=== PATIENT | female | born 1975 | race Two or more races ===

== ENCOUNTER 2017-08-31 04:06 | Emergency (ER) | payer OTHER ==
[2017-08-31] MEDS ORDERED: Ketorolac 60 MG/2 ML SDV IM ONE (04:27)
--- NOTE | 2017-08-31 04:58 | EDM.PDOC ---
ED HPI GENERAL MEDICAL PROBLEM - General Chief Complaint: Upper Extremity Injury/Pain Stated Complaint: LT ARM PAIN Time Seen by Provider: 08/31/17 04:35 Source of Information: Reports: Patient History Limitations: Reports: Other (marginal [place] skills) - History of Present Illness INITIAL COMMENTS - FREE TEXT/NARRATIVE: Was hit by a beet on her lateral L elbow about 24 hrs ago. Was wearing many layers of clothing. Has pain since with wrist extension which is required by her job. Here now due to inability to perform the duties of her job. 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: - Past Surgical History Female Surgical History: Reports: Section Social & Family History - Family History Family Medical History: Noncontributory - Tobacco Use Smoking Status *Q: Light Tobacco Smoker Years of Tobacco use: 20 Packs/Tins Daily: 0.2 - Alcohol Use Days Per Week of Alcohol Use: 2 Number of Drinks Per Day: 2 Total Drinks Per Week: 4 - Recreational Drug Use Recreational Drug Use: No Review of Systems - Review of Systems Review Of Systems: See Below Constitutional: Reports: No Symptoms Musculoskeletal: Reports: Joint Pain (L elbow) Skin: Reports: No Symptoms Neurological: Reports: No Symptoms ED EXAM, GENERAL - Physical Exam Exam: See Below Exam Limited By: No Limitations General Appearance: Alert, WD/WN, No Apparent Distress, Obese Extremities: Normal Inspection, Arm Pain (L elbow has slight swelling. No bony pain. Pain over the muscular aspect of the lateral elbow. ROM to flexion/ext and supination/pronation is slightly reduced.), Limited Range of Motion. No: Normal Range of Motion, Non-Tender, No Pedal Edema Neurological: Alert, Oriented, CN II-XII Intact, Normal Cognition, No Motor/ Sensory Deficits Psychiatric: Normal Affect, Normal Mood Skin Exam: Warm, Dry, Intact, Normal Color, No Rash Lymphatic: No Adenopathy Course - Vital Signs Last Recorded V/S: Last Vital Signs Temp 36.4 C 08/31/17 04:06 Pulse 63 08/31/17 04:06 Resp 18 08/31/17 04:06 BP 131/85 08/31/17 04:06 Pulse Ox 99 08/31/17 04:06 - Orders/Labs/Meds Meds: Medications Discontinued Medications Generic Name Dose Route Start Last Admin Trade Name Freq PRN Reason Stop Dose Admin Ketorolac Tromethamine 60 mg 08/31/17 04:27 08/31/17 04:40 Toradol IM 08/31/17 04:28 60 mg ONETIME ONE Administration Departure - Departure Time of Disposition: 04:58 Disposition: Home, Self-Care 01 Condition: Good Clinical Impression: Contusion of elbow, left Qualifiers: Encounter type: initial encounter Qualified Code(s): S50.02XA - Contusion of left elbow, initial encounter - Discharge Information Referrals: PCP,None [Primary Care Provider] - Forms: ED Department Discharge Additional Instructions: Wear sling for support. Take ibuprofen 400 mg every 6 hrs starting at 10 am today. Recheck in a clinic of your choice by early next week, call for an appt.
== END 2017-08-31 05:15 | disposition home or self-care (01) ==
LOC: FB.ED 04:06
DX: S50.02XA Contusion of left elbow, initial encounter (principal); X50.9XXA Other and unspecified overexertion or strenuous movements or postures, initial encounter; Y99.0 Civilian activity done for income or pay; F17.210 Nicotine dependence, cigarettes, uncomplicated
CPT/HCPCS: 96372; 99000; 99282; J1885

== ENCOUNTER 2019-08-02 15:19 | Emergency (ER) | payer MEDICAID, OTHER ==
[2019-08-02] MEDS ORDERED: Lidocaine 1% with EPINEPHrine 1:100,000 10 ML MDV INFILT ONE (15:20)
[2019-08-02] MEDS ORDERED: Diphtheria/Tetanus Toxoids,Adult (Td) 0.5 ML SDV IM ONE (16:47)
--- NOTE | 2019-08-02 16:55 | EDM.PDOC ---
ED HPI GENERAL MEDICAL PROBLEM - General Stated Complaint: LEG LACERATION Time Seen by Provider: 08/02/19 17:50 Source of Information: Reports: Patient History Limitations: Reports: No Limitations - History of Present Illness INITIAL COMMENTS - FREE TEXT/NARRATIVE: patient presents with concern for a laceration on her leg which occurred shortly prior to arrival as she was cutting through a rope with a knife. Bleeding. She has not tried anything or done anything for it. She does not have any numbness or tingling below it, and is able to move her knee okay. Otherwise healthy. 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 ED EXAM, GENERAL - Physical Exam Exam: See Below Free Text/Narrative:: Gen.: Alert, very pleasant no acute distress. right leg: She has an approximately 2 cm laceration about 5 cm above her patella on the anterior side. Wound is clean with the edges and there is no contamination present distal CSM is intact ED GENERAL MEDICAL PROCEDURES - Laceration/Wound Repair Right Leg Lac/wound length in cm: 2 Appearance: Subcutaneous Distal NVT: Neuro & Vascular Intact Anesthetic Type: Local Local Anesthesia - Lidocaine (Xylocaine): 1% with EPI Local Anesthetic Volume: 3cc Skin Prep: Chlorhexidine (Hibiciens) Closed with: Sutures Suture Size: 4-0 Suture Type: Simple Course - Vital Signs Text/Narrative:: wound was anesthetized, and then Hibiclens soak gauze was applied to the wound for 10 minutes. Wound appears clean and there is no contamination. It was liberally irrigated with sterile saline. 3 stitches of 40 were placed, see procedure note. Reviewed with patient signs or symptoms of infection and recommended stitches out in 7- 10 days. Wound care also reviewed. They're in agreement with this plan and had no further questions. Tetanus updated today Last Recorded V/S: Last Vital Signs Temp 36.7 C 08/02/19 17:12 Pulse 69 08/02/19 17:12 Resp 16 08/02/19 17:12 BP 133/69 08/02/19 17:12 Pulse Ox 96 08/02/19 17:12 - Orders/Labs/Meds Orders: Active Orders 24 hr Category Date Time Status Vaccines to be Administered [RC] PER UNIT ROUTINE Care 08/02/19 16:47 Ordered Vaccines to be Administered [RC] PER UNIT ROUTINE Care 08/02/19 16:57 Active Meds: Medications Discontinued Medications Generic Name Dose Route Start Last Admin Trade Name Freq PRN Reason Stop Dose Admin Diphtheria/Tetanus/Acell Pertussis 0.5 ml 08/02/19 16:57 08/02/19 17:00 Adacel IM 08/02/19 16:58 0.5 ml .ONCE ONE Administration Tetanus/Diphtheria Toxoids 0.5 ml 08/02/19 16:47 08/02/19 17:02 Tenivac IM 08/02/19 16:48 Not Given .ONCE ONE Departure - Departure Time of Disposition: 16:48 Disposition: Home, Self-Care 01 Condition: Good Clinical Impression: Laceration - Discharge Information *PRESCRIPTION DRUG MONITORING PROGRAM REVIEWED*: Not Applicable *COPY OF PRESCRIPTION DRUG MONITORING REPORT IN PATIENT RADHA: Not Applicable Instructions: Sutured Wound Care Referrals: PCP,None [Primary Care Provider] - Additional Instructions: stitches out in 7-10 days keep wound covered with bandaid while healing if signs infection, see dr for followup. Can be seen in walk-in clinic unless fever, pain or swelling in knee joint itself, then need to come to ER tetanus updated today take very good care - My Orders Last 24 Hours: My Active Orders 08/02/19 16:47 Vaccines to be Administered [RC] PER UNIT ROUTINE 08/02/19 16:57 Vaccines to be Administered [RC] PER UNIT ROUTINE - Assessment/Plan Last 24 Hours: My Active Orders 08/02/19 16:47 Vaccines to be Administered [RC] PER UNIT ROUTINE 08/02/19 16:57 Vaccines to be Administered [RC] PER UNIT ROUTINE
[2019-08-02] MEDS ORDERED: Diphtheria,Pertussis(Acell),Tetanus Vaccine 0.5 ML SDV IM ONE (16:57)
== END 2019-08-02 18:00 | disposition home or self-care (01) ==
LOC: FB.ED 15:19
DX: S71.111A Laceration without foreign body, right thigh, initial encounter (principal); Z23 Encounter for immunization; W26.0XXA Contact with knife, initial encounter
CPT/HCPCS: 12001; 12011; 90471; 90715; 99282

== ENCOUNTER 2021-05-03 18:00 | Emergency (ER) | payer SELFPAY ==
--- NOTE | 2021-05-03 18:21 | EDM.PDOC ---
ED HPI GENERAL MEDICAL PROBLEM - General Stated Complaint: side pain Time Seen by Provider: 05/03/21 18:20 Source of Information: Reports: Patient History Limitations: Reports: No Limitations - History of Present Illness INITIAL COMMENTS - FREE TEXT/NARRATIVE: 46-year-old female who reports that really for about the past 8 years she has had intermittent pain in her right mid back and flank. The pains have been mild to moderate and they come and go. She didn't really think much of it and has never had it investigated. At approximately 1 AM today she was awakened with severe pain in her right mid back and flank in the same area that she has been having the pain before except it was much more severe. She reports the pain is a 10/10 level of pain and it really has not gone away since its onset at 1 AM. She does report that there are times and the pain gets worse and then relaxes somewhat and she reports intermittent nausea associated with these times. She also feels that she gets hot all over when this happens but she has had no diaphoresis. The pain is a sharp pain that is worse with palpation and somewhat with movement but she also tells me that she cannot find a comfortable position. She has no abdominal pain associated with this. She has had no dysuria but has noted that her urine has been dark. She has been drinking liquids well today but has not really eating much secondary to the pain. She did have a normal bowel movement just when she arrived as she was getting us a urine specimen. There was no blood in this stool. There are no other associated signs or symptoms. There are no other modifying factors. Onset: Today (1 AM. 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 ED ROS GENERAL - Review of Systems Review Of Systems: See Below Constitutional: Denies: Fever, Chills HEENT: Denies: Throat Pain, Vision Change Respiratory: Denies: Shortness of Breath, Cough Cardiovascular: Denies: Chest Pain, Lightheadedness Endocrine: Denies: Polydypsia, Polyuria GI/Abdominal: Reports: Nausea. Denies: Abdominal Pain, Vomiting : Reports: Flank Pain (Right upper). Denies: Dysuria, Hematuria Musculoskeletal: Reports: Back Pain (Right mid). Denies: Neck Pain Skin: Denies: Diaphoresis, Rash Neurological: Denies: Dizziness, Headache Psychiatric: Denies: Anxiety Hematologic/Lymphatic: Denies: Easy Bleeding, Easy Bruising ED EXAM, GENERAL - Physical Exam Exam: See Below Exam Limited By: No Limitations General Appearance: Alert, Moderate Distress (Appears in pain.), Obese Eye Exam: Bilateral Eye: EOMI, Normal Inspection, PERRL Ears: Normal External Exam, Hearing Grossly Normal Ear Exam: Bilateral Ear: Auricle Normal Nose: Normal Inspection, Normal Mucosa, No Blood Throat/Mouth: Normal Inspection, Normal Voice, No Airway Compromise Head: Atraumatic, Normocephalic Neck: Normal Inspection, Supple, Non-Tender, Full Range of Motion Respiratory/Chest: No Respiratory Distress, Lungs Clear, Normal Breath Sounds, No Accessory Muscle Use, Chest Non-Tender Cardiovascular: Normal Peripheral Pulses, Regular Rate, Rhythm, No Rub Peripheral Pulses: 2+: Radial (L), Radial (R) GI/Abdominal: Normal Bowel Sounds, Soft, Non-Tender, No Mass Back Exam: Normal Inspection, CVA Tenderness (R). No: CVA Tenderness (L) Extremities: Normal Inspection, Normal Range of Motion, Non-Tender, No Pedal Edema, Normal Capillary Refill Neurological: Alert, Oriented, CN II-XII Intact, Normal Cognition, No Motor/Sensory Deficits Psychiatric: Normal Affect, Normal Mood Skin Exam: Warm, Dry, Intact, Normal Color, No Rash Course - Vital Signs Last Recorded V/S: Last Vital Signs Temp 36.8 C 05/03/21 18:13 Pulse 71 05/03/21 18:13 Resp 16 05/03/21 18:13 BP 164/100 H 05/03/21 18:13 Pulse Ox 98 05/03/21 18:13 - Orders/Labs/Meds Orders: Active Orders 24 hr Category Date Time Status Abdomen Pelvis wo Cont [CT] Stat Exams 05/03/21 18:48 Taken Sodium Chloride 0.9% [Saline Flush] Med 05/03/21 18:33 Active 10 ml FLUSH ASDIRECTED PRN Peripheral IV Insertion Adult [OM.PC] Routine Oth 05/03/21 18:33 Ordered Medication Orders Sodium Chloride (Sodium Chloride 0.9% 10 Ml Syringe) 10 ml FLUSH ASDIRECTED PRN PRN Reason: Keep Vein Open Last Admin: 05/03/21 18:41 Dose: 10 ml Documented by: DIFFCAL Labs: Laboratory Tests 05/03/21 05/03/21 05/03/21 Range/Units 18:20 18:20 18:55 WBC 8.3 (3.0-10.3) x10-3/uL RBC 5.12 (3.60-5.20) x10(6)uL Hgb 14.7 (11.4-15.5) g/dL Hct 43.8 (34.2-48.2) % MCV 85.6 (76.7-100.5) fL MCH 28.7 (23.9-33.9) pg MCHC 33.6 (31.9-34.8) g/dL RDW 13.9 (12.3-16.5) % Plt Count 271 (151-488) x10(3)uL MPV 8.4 (7.1-12.4) fL Neut % (Auto) 48.0 (30.8-76.2) % Lymph % (Auto) 38.7 (18.4-52.1) % [place] % (Auto) 7.9 (4.4-15.7) % Eos % (Auto) 4.6 (0.6-8.1) % Baso % (Auto) 0.8 (0.2-1.5) % Neut # (Auto) 4.0 (1.5-6.3) x10-3/uL Lymph # (Auto) 3.2 (1.0-4.4) x10-3/uL [place] # (Auto) 0.7 (0.3-1.0) x10-3/uL Eos # (Auto) 0.4 (0.0-0.8) x10-3/uL Baso # (Auto) 0.1 (0.0-0.1) x10-3/uL Sodium (135-145) mmol/L Potassium (3.5-5.3) mmol/L Chloride (100-110) mmol/L Carbon Dioxide (21-32) mmol/L BUN (7-18) mg/dL Creatinine (0.55-1.02) mg/dL Est Cr Clr Drug Dosing mL/min Estimated GFR (MDRD) (>60) BUN/Creatinine Ratio (9-20) Glucose (80-116) mg/dL Calcium (8.6-10.2) mg/dL Magnesium (1.8-2.5) mg/dL Total Bilirubin (0.1-1.3) mg/dL AST (5-25) IU/L ALT (12-36) U/L Alkaline Phosphatase (56-112) IU/L C-Reactive Protein (0.5-0.9) mg/dL Total Protein (6.0-8.0) g/dL Albumin (3.5-5.2) g/dL Globulin g/dL Albumin/Globulin Ratio Lipase (73-393) U/L Urine Color Yellow (YELLOW) Urine Appearance Cloudy (CLEAR) Urine pH 7.0 H (5.0-6.5) Ur Specific [place] 1.010 (1.010-1.025) Urine Protein Negative (NEGATIVE) mg/dL Urine Glucose (UA) Normal (NORMAL) mg/dL Urine Ketones Negative (NEGATIVE) mg/dL Urine Occult Blood Large H (NEGATIVE) Urine Nitrite Negative (NEGATIVE) Urine Bilirubin Negative (NEGATIVE) Urine Urobilinogen Normal (NEGATIVE) mg/dL Ur Leukocyte Esterase Negative (NEGATIVE) Urine RBC 20-30 H (0-5) Urine WBC 0-5 (0-5) Ur Squamous Epith Cells Moderate H (NS,R,O) Amorphous Sediment Moderate Urine Bacteria Many H (NS) Urine HCG, Qual Negative (NEGATIVE) 05/03/21 05/03/21 05/03/21 Range/Units 18:55 18:55 18:55 WBC (3.0-10.3) x10-3/uL RBC (3.60-5.20) x10(6)uL Hgb (11.4-15.5) g/dL Hct (34.2-48.2) % MCV (76.7-100.5) fL MCH (23.9-33.9) pg MCHC (31.9-34.8) g/dL RDW (12.3-16.5) % Plt Count (151-488) x10(3)uL MPV (7.1-12.4) fL Neut % (Auto) (30.8-76.2) % Lymph % (Auto) (18.4-52.1) % [place] % (Auto) (4.4-15.7) % Eos % (Auto) (0.6-8.1) % Baso % (Auto) (0.2-1.5) % Neut # (Auto) (1.5-6.3) x10-3/uL Lymph # (Auto) (1.0-4.4) x10-3/uL [place] # (Auto) (0.3-1.0) x10-3/uL Eos # (Auto) (0.0-0.8) x10-3/uL Baso # (Auto) (0.0-0.1) x10-3/uL Sodium 142 (135-145) mmol/L Potassium 3.7 (3.5-5.3) mmol/L Chloride 104 (100-110) mmol/L Carbon Dioxide 27 (21-32) mmol/L BUN 12 (7-18) mg/dL Creatinine 0.7 (0.55-1.02) mg/dL Est Cr Clr Drug Dosing 72.90 mL/min Estimated GFR (MDRD) > 60 (>60) BUN/Creatinine Ratio 17.1 (9-20) Glucose 110 (80-116) mg/dL Calcium 8.3 L (8.6-10.2) mg/dL Magnesium 2.1 (1.8-2.5) mg/dL Total Bilirubin 0.3 (0.1-1.3) mg/dL AST 51 H D (5-25) IU/L ALT 99 H D (12-36) U/L Alkaline Phosphatase 117 H (56-112) IU/L C-Reactive Protein 0.6 (0.5-0.9) mg/dL Total Protein 7.6 (6.0-8.0) g/dL Albumin 3.6 (3.5-5.2) g/dL Globulin 4.0 g/dL Albumin/Globulin Ratio 0.9 Lipase 127 (73-393) U/L Urine Color (YELLOW) Urine Appearance (CLEAR) Urine pH (5.0-6.5) Ur Specific [place] (1.010-1.025) Urine Protein (NEGATIVE) mg/dL Urine Glucose (UA) (NORMAL) mg/dL Urine Ketones (NEGATIVE) mg/dL Urine Occult Blood (NEGATIVE) Urine Nitrite (NEGATIVE) Urine Bilirubin (NEGATIVE) Urine Urobilinogen (NEGATIVE) mg/dL Ur Leukocyte Esterase (NEGATIVE) Urine RBC (0-5) Urine WBC (0-5) Ur Squamous Epith Cells (NS,R,O) Amorphous Sediment Urine Bacteria (NS) Urine HCG, Qual (NEGATIVE) Meds: Medications Generic Name Dose Route Start Last Admin Trade Name Freq PRN Reason Stop Dose Admin Sodium Chloride 10 ml 05/03/21 18:33 05/03/21 18:41 Sodium Chloride 0.9% 10 Ml Syringe FLUSH 10 ml ASDIRECTED PRN Administration Keep Vein Open Discontinued Medications Generic Name Dose Route Start Last Admin Trade Name Freq PRN Reason Stop Dose Admin Sodium Chloride 1,000 mls @ 999 mls/hr 05/03/21 18:34 05/03/21 18:41 Normal Saline IV 05/03/21 19:34 999 mls/hr .BOLUS ONE Administration Ketorolac Tromethamine 30 mg 05/03/21 18:34 05/03/21 18:40 Ketorolac 30 Mg/Ml Sdv IVPUSH 05/03/21 18:35 30 mg ONETIME ONE Administration Ondansetron HCl 4 mg 05/03/21 18:34 05/03/21 18:40 Ondansetron 4 Mg/2 Ml Sdv IVPUSH 05/03/21 18:35 4 mg ONETIME ONE Administration - Radiology Interpretation Free Text/Narrative:: CT scan of abdomen and pelvis showed no acute or specific finding to explain the back, flank pain or hematuria. This was per the [facility] radiologist. - Re-Assessments/Exams Free Text/Narrative Re-Assessment/Exam: 05/03/21 18:45: The patient's urine had many red blood cells but no white cells. Her urine test was negative. With the patient's pain and now hematuria, I feel that kidney stone is a likely source of her pain. An IV is being established at present to give the patient Toradol and Zofran IV as well as 1 L of normal saline as bolus. I will also order a CT scan of her abdomen and pelvis without IV contrast. 05/03/21 20:35: The CT scan of the abdomen and pelvis was negative. Her labs showed elevated LFTs. Really everything else was normal. At this point, the patient feels much improved. Her pain is down to a 2-3/10 when she moves but otherwise is essentially gone. I discussed the labs and CT findings with the patient. I am unsure why she is having the recurrent pain. I am concerned about her LFTs being elevated and I have told her that she needs to arrange for a primary provider as she will need additional outpatient testing and she will need a primary provider to do this through. For now, I don't see anything specific to treat. I will give her a prescription for tramadol and Norflex that she can use for pain relief and I have told her she needs to arrange for primary provider to be seen by next week anyway. Precautions and reasons for return to the emergency department were discussed with the patient while she was in the emergency department and were detailed in the patient's discharge instructions. Departure - Departure Time of Disposition: 20:50 Disposition: Home, Self-Care 01 Condition: Good (Improved) Clinical Impression: Mid back pain on right side, Right flank pain - Discharge Information Prescriptions: Orphenadrine [Norflex] 100 mg PO BID PRN #12 tab PRN Reason: Muscle spasm or muscle pain traMADol [Ultram] 50 mg PO Q6H PRN #14 tab PRN Reason: Moderate to severe pain Instructions: Flank Pain, Adult, [id number] Referrals: PCP,None [Primary Care Provider] - Additional Instructions: Your urine test did show some evidence of blood in your urine. There was no evidence of an infection. Your blood tests were mostly normal. As we discussed, your liver tests were slightly elevated. I am unsure why he would have this liver function test elevation. The CT scan of your abdomen and pelvis showed no acute problem. Specifically, there were no kidney stones and your liver appeared normal on the CAT scan. I am unsure why you are having the recurring pain in you r right mid back and side. It is possibly due to a muscular pain or also as we discussed, it could be related to a problem with a disc in your back. I have given you prescriptions for pain medication (tramadol, this prescription was given to you) and a muscle relaxer (Norflex, this was electronically sent to [facility]) for muscle pain and muscle spasm. Take these medications as needed for your symptoms. You do need to establish with a primary doctor as she will need additional testing through that Dr. to find out why you are having this recurrent pain increase your fluid intake. Back to the emergency department for high fever, unrelenting vomiting, trouble breathing, coughing up blood or any other concerning signs or symptoms. Sepsis Event Note (ED) - Focused Exam Vital Signs: Vital Signs Temp Pulse Resp BP Pulse Ox 05/03/21 18:13 36.8 C 71 16 164/100 H 98 - My Orders Last 24 Hours: My Active Orders 05/03/21 18:33 Sodium Chloride 0.9% [Saline Flush] 10 ml FLUSH ASDIRECTED PRN Peripheral IV Insertion Adult [OM.PC] Routine 05/03/21 18:48 Abdomen Pelvis wo Cont [CT] Stat - Assessment/Plan Last 24 Hours: My Active Orders 05/03/21 18:33 Sodium Chloride 0.9% [Saline Flush] 10 ml FLUSH ASDIRECTED PRN Peripheral IV Insertion Adult [OM.PC] Routine 05/03/21 18:48 Abdomen Pelvis wo Cont [CT] Stat
[2021-05-03] MEDS ORDERED: Sodium Chloride 0.9% 10 ML Syringe FLUSH PRN (18:33)
[2021-05-03] MEDS ORDERED: Ketorolac 30 MG/ML SDV IVPUSH ONE (18:34)
[2021-05-03] MEDS ORDERED: Sodium Chloride 0.9% 1,000 ML IV ONE (18:34)
[2021-05-03] MEDS ORDERED: Ondansetron 4 MG/2 ML SDV IVPUSH ONE (18:34)
== END 2021-05-03 21:05 | disposition home or self-care (01) ==
LOC: FB.ED 18:00
DX: R10.9 Unspecified abdominal pain (principal); M54.6 Pain in thoracic spine; Z90.49 Acquired absence of other specified parts of digestive tract
CPT/HCPCS: 36415; 74176; 80053; 81001; 81025; 83690; 83735; 85025; 86140; 96374; 96375; 99284; J1885; J2405; J7030

== ENCOUNTER 2023-12-14 19:29 | Emergency (ER) | payer MEDICAID ==
[2023-12-14] MEDS ORDERED: Lidocaine 2% with EPINEPHrine 1:100,000 20 ML MDV INFILT ONE (19:30)
== END 2023-12-14 20:39 | disposition home or self-care (01) ==
LOC: FB.ED 19:29
DX: S81.811A Laceration without foreign body, right lower leg, initial encounter (principal); Z90.49 Acquired absence of other specified parts of digestive tract; Z79.899 Other long term (current) drug therapy; W26.8XXA Contact with other sharp object(s), not elsewhere classified, initial encounter
CPT/HCPCS: 12001; 99282